=== PATIENT | female | born 1955 | race Caucasian/White ===

== ENCOUNTER 2017-09-05 08:26 | Outpatient (CLI) | payer MEDICARE ==
[~2017-09-05 08:26] MED LIST: ISOVUE-370 76%-LOCM 1 ML ONE
== END 2017-09-05 08:27 | disposition home or self-care (01) ==
LOC: BICCT 08:26
PROVIDERS: ATTEND Family Medicine
DX: G43.909 Migraine, unspecified, not intractable, without status migrainosus (principal)
CPT/HCPCS: 70470

== ENCOUNTER 2018-05-14 08:56 | Emergency (ER) | payer OTHER, MEDICARE ==
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
== END 2018-05-14 11:00 | disposition home or self-care (01) ==
LOC: ERS 08:56
DX: S16.1XXA Strain of muscle, fascia and tendon at neck level, initial encounter (principal); S29.012A Strain of muscle and tendon of back wall of thorax, initial encounter; I10 Essential (primary) hypertension; E11.9 Type 2 diabetes mellitus without complications; E78.5 Hyperlipidemia, unspecified; F41.9 Anxiety disorder, unspecified; Z79.84 Long term (current) use of oral hypoglycemic drugs; Z79.899 Other long term (current) drug therapy; V43.52XA Car driver injured in collision with other type car in traffic accident, initial encounter
CPT/HCPCS: 70450; 71045; 72125

== ENCOUNTER 2018-07-06 17:07 | Emergency (ER) | payer MEDICARE ==
[2018-07-06 17:59] LABS: #Eosinphils 0.1 thou/uL (0.0-0.7); #Lymphocytes 1.2 thou/uL (1.20-3.40); #Monocytes 0.9 thou/uL (0.11-0.59); #Neutrophils 9.7 thou/uL (1.40-6.50); %Basophils 0.3 % (0.0-1.0); %Lymphocytes 10.2 % (21.0-51.0); %Monocytes 7.4 % (0.0-10.0); %Neutrophils 81.1 % (42.0-75.0); Hemoglobin 13.1 g/dL (12.0-16.0); Mean Corpuscular Hemoglobin 29.6 pg (27.0-31.0); Mean Corpuscular Volume 86.9 fL (78.0-98.0); Mean Platelet Volume 8.1 fL (7.4-10.4); Platelet Count 279 thou/uL (130-400); RBC Distribution Width 11.6 % (11.5-14.5); Red Blood Cell (RBC) Count 4.42 mill/uL (4.20-5.40)
[2018-07-06 18:19] LABS: ALT (SGPT) 16 U/L (8-55); AST (SGOT) 16 U/L (5-34); Albumin 4.5 g/dL (3.4-4.8); Alkaline Phosphatase 92 U/L (40-150); Anion Gap 14 mmol/L (10-20); BUN (Urea Nitrogen) 14 mg/dL (9.8-20.1); Bilirubin, Total 0.7 mg/dL (0.2-1.2); Calc. Creatinine Clearance 0 mL/min (70-130); Calcium 9.4 mg/dL (7.8-10.44); Carbon Dioxide 27 mmol/L (23-31); Chloride 98 mmol/L (98-107); Estimated GFR-MDRD 59; Globulin 3.5 g/dL (2.4-3.5); Glucose 242 mg/dL (80-115); Potassium 4.7 mmol/L (3.5-5.1); Sodium 134 mmol/L (136-145)
[2018-07-06] MEDS ORDERED: Ondansetron PF 4 MG/2 ML Vial ONE ×2 (19:03→19:04)
[2018-07-06] MEDS ORDERED: Ketorolac Tromethamine 30 MG/ML VIAL ONE (19:03)
--- NOTE | 2018-07-06 19:12 | RAD ---
CHEST ONE VIEW: 07/06/18 HISTORY: Cough. COMPARISON: Radiograph 05/14/18. FINDINGS: Lungs are clear. No pneumothorax or effusion. The cardiac silhouette and mediastinal contours are wi thin normal limits. IMPRESSION: No acute intrathoracic abnormality. POS: [facility]
[2018-07-06 19:52] LABS: Bilirubin Small (Negative); Blood, Urine Negative (Negative); Clarity CLEAR (Clear); Glucose, Urine (Dipstick) Negative (Negative); Leukocyte Small (Negative); Nitrite Negative (Negative); Protein, Urine (Dipstick) 30 mg/dL (Neg-Trace); Specific Gravity, Urine 1.026 (1.002-1.036)
[2018-07-06 19:56] LABS: Bacteria/HPF None Seen HPF (None Seen); Hyaline Casts/LPF 0-3 HYALINE CAST LPF (0-3 Hyaline); Pathc Cast-AUWi Flag 0.29 (0-2.49); Squamous Epithelial 0-3 HPF (0-3)
== END 2018-07-06 21:08 | disposition home or self-care (01) ==
LOC: ERS 17:07
DX: J20.9 Acute bronchitis, unspecified (principal); E86.0 Dehydration; N39.0 Urinary tract infection, site not specified; E11.9 Type 2 diabetes mellitus without complications; I10 Essential (primary) hypertension; E78.5 Hyperlipidemia, unspecified; Z79.899 Other long term (current) drug therapy; Z79.4 Long term (current) use of insulin
CPT/HCPCS: 36415; 71045; 80053; 81003; 81015; 82010; 82550; 83690; 83880; 84484; 85025; 87086; 87804; 93005; 96361; 96374; 96375; J1885; J2405

== ENCOUNTER 2018-12-28 08:11 | Outpatient (CLI) | payer MEDICARE ==
--- NOTE | 2018-12-28 10:58 | NM ---
EXAM: NM Hida Scan W Drug PROVIDED CLINICAL HISTORY: Right upper quadrant abdominal pain for COMPARISON: None Radiopharmaceutical: 5.5 mCi technetium 99m mebrofenin, IV. FINDINGS: Sequential anterior images of the abdomen were obtained. There is prompt uptake and excretion of radi otracer by the liver. Bowel activity is visualized by 14 minutes with gallbladder activity visualized by 45 minutes with increasing activity in the gallbladder imaging up to 60 minutes. After 60 minutes of imaging, the patient was administered 8 ounces of ensure, by mouth. A gallbladder ejection fraction of 45% was obtained. A normal gallbladder ejection fracture is greater than 33%. IMPRESSION: 1. No evidence of a cystic or common duct obstruction. 2. Normal gallbladder ejection fraction.
== END 2018-12-28 08:12 | disposition home or self-care (01) ==
LOC: NM 08:11
PROVIDERS: ATTEND Family Medicine
DX: R10.11 Right upper quadrant pain (principal)
CPT/HCPCS: 78227; A9537

== ENCOUNTER 2019-01-24 13:04 | Inpatient (IN) | payer MEDICARE ==
[2019-01-24] MEDS ORDERED: Ondansetron PF 4 MG/2 ML Vial ONE (14:20)
[2019-01-24] MEDS ORDERED: Ketorolac Tromethamine 30 MG/ML VIAL ONE (14:20)
[2019-01-24] MEDS ORDERED: Dexamethasone 10 MG/ML VIAL ONE (14:20)
[2019-01-24 14:37] LABS: #Eosinphils 0.1 thou/uL (0.0-0.7); #Lymphocytes 1.5 thou/uL (1.20-3.40); #Monocytes 0.8 thou/uL (0.11-0.59); #Neutrophils 9.5 thou/uL (1.40-6.50); %Basophils 0.4 % (0.0-1.0); %Eosinophils 0.7 % (0.0-10.0); %Lymphocytes 12.6 % (21.0-51.0); %Monocytes 6.3 % (0.0-10.0); Hemoglobin 12.8 g/dL (12.0-16.0); Mean Corpuscular Hemoglobin 30.8 pg (27.0-31.0); Mean Corpuscular Volume 87.9 fL (78.0-98.0); Mean Platelet Volume 8.1 fL (7.4-10.4); Platelet Count 259 thou/uL (130-400); RBC Distribution Width 11.6 % (11.5-14.5); Red Blood Cell (RBC) Count 4.15 mill/uL (4.20-5.40); White Blood Cell (WBC) Count 11.8 thou/uL (4.8-10.8)
[2019-01-24 14:59] LABS: ALT (SGPT) 18 U/L (8-55); AST (SGOT) 17 U/L (5-34); Albumin 4.4 g/dL (3.4-4.8); Alkaline Phosphatase 82 U/L (40-150); Anion Gap 15 mmol/L (10-20); BUN (Urea Nitrogen) 14 mg/dL (9.8-20.1); Bilirubin, Total 0.7 mg/dL (0.2-1.2); Calc. Creatinine Clearance 0 mL/min (70-130); Calcium 9.6 mg/dL (7.8-10.44); Carbon Dioxide 25 mmol/L (23-31); Chloride 99 mmol/L (98-107); Estimated GFR-MDRD 72; Globulin 3.1 g/dL (2.4-3.5); Glucose 202 mg/dL (80-115); Lipase 8 U/L (8-78); Potassium 4.3 mmol/L (3.5-5.1); Protein, Total 7.5 g/dL (6.0-8.3); Sodium 135 mmol/L (136-145)
--- NOTE | 2019-01-24 15:10 | RAD ---
RADIOGRAPH CHEST 2 VIEWS: Date: 01/24/19 Time: 1457 HOURS HISTORY: 63-year-old female with fever. COMPARISON: 07/06/18. FINDINGS: There is a new faint, moderate sized region of patchy infiltrate in the right upper lobe. Cardiomedia stinal silhouette is normal. No pneumothorax or pleural effusion. IMPRESSION: Right upper lobe pneumonia. JN [] POS: [facility]
[2019-01-24] MEDS ORDERED: cefTRIAXone\\ROCEPHIN 2 GM VIAL ONE (15:25)
[2019-01-24] MEDS ORDERED: Azithromycin 500 MG VIAL ONE (15:25)
--- NOTE | 2019-01-24 15:27 | CT ---
CT Abdomen Pelvis W Con: 01/24/2019 2:13 PM CLINICAL INFORMATION: Right lower quadrant abdominal pain COMPARISON: None. TECHNIQUE: Multiple contiguous axial images were obtained and a CT of the abdomen and pelvis with IV contrast. Oral contrast was administered. Coronal reformats were performed. FINDINGS: Lower Chest: within normal limits. Abdomen: Liver: within normal limits. Bile Ducts: Normal caliber. Gallbladder: No calcified gallstones. Normal caliber wall. Pancreas: within normal limits. Spleen: within normal limits. Adrenals: within normal limits. Kidneys: Subcentimeter hypodensities in the right kidney are too small to definitely characterize but likely represent cysts. No left renal abnormality. Pelvis: Reproductive Organs: No pelvic masses. Ureters: within normal limits. Bladder: within normal limits. There is a questionable left lateral bladder diverticulum. Peritoneum: No ascites or free air, no fluid collection. Bowel: Normal caliber. Normal appendix. Scattered diverticula in the colon. Mesentery and Retroperitoneum: No enlarged mesenteric or retroperitoneal lymph nodes. Vessels: Atherosclerotic calcifications. Abdominal Wall: within normal limits. Bones: Degenerative changes in the spine. IMPRESSION: 1. No evidence of acute intraabdominal or pelvic abnormality. 2. Diverticulosis
--- NOTE | 2019-01-24 17:58 | PDOC.FM ---
- Subjective Subjective: Mrs. Ambrocio is a 63 y/o female who presents to the ED with a 24 hour history of dry cough, fever, malaise, N/V/D. She states that she began coughing and gagging last night after dinner and has been "unable to swallow or keep anything down". She also complains of sporadic, generalized chest pain that is associated with her cough as well as generalized abdominal pain that is diffuse and difficult to characterize. Nothing has been able to resolve her symptoms, and she was quite anxious upon presentation. She attempted to see a local physician this morning but was unable to get an appointment, so she came to the ED. She denies any SOB, cough productive of blood or sputum, chills, night sweats changes in weight. - Objective Vital Signs & Weight: TMax(99.5) HR(101) BP(151/65) RR(19) O2(94-Room) Result Diagrams: 01/24/19 14:26 01/24/19 14:26 Radiology Reviewed by me: No (RUL Infiltrates) Phys Exam - Physical Examination Constitutional: NAD HEENT: moist MMs, oral pharynx no lesions Neck: no nodes, no JVD, supple, full ROM Respiratory: no wheezing, no rales Course breath sounds in RUL Cardiovascular: RRR, no significant murmur, no rub Gastrointestinal: soft, no distention Mild epigastric tenderness Musculoskeletal: no edema Neurological: moves all 4 limbs Lymphatic: no nodes Psychiatric: normal affect, A&O x 3 Skin: no rash Dx/Plan (1) Pneumonia Code(s): J18.9 - PNEUMONIA, UNSPECIFIED ORGANISM Status: Acute (2) Neuropathy Code(s): G62.9 - POLYNEUROPATHY, UNSPECIFIED Status: Acute (3) Hypertension Code(s): I10 - ESSENTIAL (PRIMARY) HYPERTENSION Status: Chronic (4) Diabetes 1.5, managed as type 2 Code(s): E13.9 - OTHER SPECIFIED DIABETES MELLITUS WITHOUT COMPLICATIONS Status: Chronic (5) Nausea & vomiting Code(s): R11.2 - NAUSEA WITH VOMITING, UNSPECIFIED Status: Acute - Plan Plan: 1. Pneumonia -Cough, N/V, malaise, with subjective fever -Course breath sounds heard in RUL -CXR: RUL Infiltrates -Elevated WBCs (11.8) -Toradol, Decadron, Zofran, Rocephin, Azithromycin, and 1L NS given in ED - 2. Diabetes 3. HTN 4. Nausea / Vomiting 5. Neuropathy
[2019-01-24] MEDS ORDERED: Sodium Chloride 0.9% 1,000 ML IV SCH (18:33)
[2019-01-24] MEDS ORDERED: Ondansetron ODT 4 MG TAB PO PRN (18:33)
[2019-01-24] MEDS ORDERED: Acetaminophen 325 MG TAB PO PRN (18:33)
--- NOTE | 2019-01-24 18:38 | PDOC.FPRHP ---
- History of Present Illness Chief Complaint: Sore Throat, Cough, N/V/D, Malaise History of Present Illness: Mrs. Ambrocio is a 63 y/o female who presents to the ED with a 24 hour history of dry cough, fever, malaise, N/V/D. She states that she began coughing and gagging last night after dinner and has been "unable to swallow or keep anything down". She also complains of sporadic, generalized chest pain that is associated with her cough as well as generalized abdominal pain that is diffuse and difficult to characterize. Nothing has been able to resolve her symptoms, and she was quite anxious upon presentation. She attempted to see a local physician this morning but was unable to get an appointment, so she came to the ED. She denies any SOB, cough productive of blood or sputum, chills, night sweats changes in weight. ED Course: A CXR revealed RUL infiltrates while an ABD / Pelvic CT scan revealed NAF. The patient received Ceftriaxone 2 g IV, Azithromycin 500 mg IV, Dexamethasone 10 mg PO, Ondansetron 4 mg IV, and a 1L NS bolus before being transferred to the floor. - Allergies/Adverse Reactions Allergies Allergy/AdvReac Type Severity Reaction Status Date / Time Sulfa (Sulfonamide Allergy Intermediate Rash Verified 01/24/19 23:30 Antibiotics) - Home Medications Medication Instructions Recorded Confirmed Type Aspirin [Ecotrin Regular Strength] 325 mg PO DAILY 05/26/13 01/24/19 History Lisinopril 40 mg PO QAM 05/26/13 01/24/19 History Simvastatin [Zocor] 40 mg PO HS 05/26/13 01/24/19 History metFORMIN HCl 1,000 mg PO BID-WM 05/26/13 01/24/19 History Amitriptyline HCl [Elavil] 50 mg PO HS 05/30/13 01/24/19 History Gabapentin [Neurontin] 300 mg PO QID 05/30/13 01/24/19 History Cholecalciferol (Vitamin D3) 1,000 unit PO ASDIR 01/24/19 01/24/19 History [Vitamin D] Cyclobenzaprine [Flexeril] 50 mg PO HS 01/24/19 01/24/19 History HumuLIN 70/30 0 unit SC TID 01/24/19 01/24/19 History Pantoprazole [Protonix] 40 mg PO DAILY PRN 01/24/19 01/24/19 History - History PMHx: Diabetes, HTN, Neuropathy PSHx: -- FHx: -- Social: Denies x3 - Review of Systems General: reports: fever/chills, fatigue. denies: weight/appetite/sleep changes , night sweats Eyes: reports: vision changes (Chronic) Respiratory: reports: cough, congestion. denies: shortness of breath Cardiovascular: reports: chest pain (w/ Cough) Gastrointestinal: reports: nausea, vomiting, diarrhea, abdominal pain. denies: GI bleeding Genitourinary: denies: dysuria, polyuria, discharge Musculoskeletal: reports: pain, stiffness, arthritis/arthralgias Neurological: reports: numbness - Vital signs BP: [] HR: [] RR: [] Tmax: [] Pox: []% on [] Wt: [] - Physical Exam Constitutional: NAD, awake, alert and oriented, well developed, other (Ill- Appearing) HEENT: normocephalic and atraumatic, PERRLA, EOMI, grossly normal hearing, MMM, oropharynx clear -HEENT: Left Subconjunctival Hemorrhage Neck: supple, FROM, trachea midline, no LAD, no JVD Chest: no-tender to palpation, no lesions Heart: RRR, normal S1/S2, no murmurs/rubs/gallops, pulses present, no edema Lungs: no respiratory distress, good air movement, no wheezing, other (Course breath sounds in RUL) Abdomen: soft, non-tender, bowel sounds present, other (Supraumbilical hernia, reducible, non-incarcerated) FMR H&P: Results - Labs Result Diagrams: 01/24/19 14:26 01/24/19 14:26 Lab results: WBC 11.8 thou/uL (4.8-10.8) H 01/24/19 14: Hgb 12.8 g/dL (12.0-16.0) 01/24/19 14: Hct 36.4 % (36.0-47.0) 01/24/19 14: MCV 87.9 fL (78.0-98.0) 01/24/19 14: Plt Count 259 thou/uL (130-400) 01/24/19 14:26 Neutrophils % 80.0 % (42.0-75.0) H 01/24/19 14:26 Sodium 135 mmol/L (136-145) L 01/24/19 14:26 Potassium 4.3 mmol/L (3.5-5.1) 01/24/19 14:26 Chloride 99 mmol/L (98-107) 01/24/19 14:26 Carbon Dioxide 25 mmol/L (23-31) 01/24/19 14:26 BUN 14 mg/dL (9.8-20.1) 01/24/19 14:26 Creatinine 0.80 mg/dL (0.6-1.1) 01/24/19 14:26 Glucose 202 mg/dL (80-115) H 01/24/19 14:26 Lactic Acid 1.4 mmol/L (0.5-2.2) 01/24/19 14:26 Calcium 9.6 mg/dL (7.8-10.44) 01/24/19 14:26 Total Bilirubin 0.7 mg/dL (0.2-1.2) 01/24/19 14:26 AST 17 U/L (5-34) 01/24/19 14:26 ALT 18 U/L (8-55) 01/24/19 14:26 Alkaline Phosphatase 82 U/L (40-150) 01/24/19 14:26 Serum Total Protein 7.5 g/dL (6.0-8.3) 01/24/19 14:26 Albumin 4.4 g/dL (3.4-4.8) 01/24/19 14:26 Lipase 8 U/L (8-78) 01/24/19 14:26 - Radiology Interpretation Chest x-ray Status: report reviewed by me (RUL Infiltrates) CT scan - abdomen Status: report reviewed by me (NAF) FMR H&P: A/P - Problem List (1) Pneumonia Current Visit: Yes Status: Acute Code(s): J18.9 - PNEUMONIA, UNSPECIFIED ORGANISM (2) Neuropathy Current Visit: Yes Status: Acute Code(s): G62.9 - POLYNEUROPATHY, UNSPECIFIED (3) Hypertension Current Visit: No Status: Chronic Code(s): I10 - ESSENTIAL (PRIMARY) HYPERTENSION (4) Diabetes 1.5, managed as type 2 Current Visit: No Status: Chronic Code(s): E13.9 - OTHER SPECIFIED DIABETES MELLITUS WITHOUT COMPLICATIONS (5) Nausea & vomiting Current Visit: No Status: Acute Code(s): R11.2 - NAUSEA WITH VOMITING, UNSPECIFIED - Plan 1. Pneumonia -Sore Throat, dry cough, sore throat, N/V/D, malaise -Ill-appearing with coarse breath sounds in RUL -WBCs: 11.8 -CXR: RUL Infiltrates -Ceftriaxone 1 g IV daily / Azithromycin 500 mg IV daily -NS 125 ml/h for fluid resuscitation -Blood Cultures: Pending 2. DM -Humalog 70/30 45U-40U-45U AC -Mild Sliding Scale Insulin -Carb Conscious / Heart Healthy Diet 3. HTN -Restart home meds 4. Nausea / Vomiting -Ondansetron 5 mg PO Q6H 5. Neuropathy -Ensure adequate blood glucose control -Restart home Gabapentin regimen Dispo: Admit to medical floor, administer antibiotic therapy, fluid resuscitation, monitor blood glucose and ensure adequate blood pressure control. FMR H&P: Upper Level - Plan Date/Time: 01/24/19 1835 63 yo f with pmhx of type 2 diabetes, presents with one day history of sore throat, cough with productive sputum, and fever. BP:146/69 HR 119 RR 19 T: 99.5 PE: Tachycardic Minimal crackles right middle lobe No edema Abdomen soft nontender to distention Glucose: 202 Wbc 11.8 with 80% PMNs CXR shows RUL infiltrate CT-no acute findings A/P: #CAP-started on rocephin and azithromycin. #Diabetes, type 2-started on home regimen of 70/30 45/40/45 before meals with a sliding scale. #Nausea/vomiting-zofran prn, GI cocktail prn. Flu negative. No acute intra- abdominal process on CT. Jessenia Alegria MD, PGY-3 Addendum - Attending - Attending Attestation Date/Time: 01/25/19 0817 I personally evaluated the patient and discussed the management with Dr. Angelo at time of admission yesterday. I agree with the History, Examination, Assessment and Plan documented above with any addition or exceptions noted below.
[2019-01-24] MEDS ORDERED: Dextrose 5% in Water 1,000 ML IV PRN (19:10)
[2019-01-24] MEDS ORDERED: Dextrose 50% Abboject 50 ML SYRINGE SLOW IVP PRN (19:10)
[2019-01-24 20:01] VITALS: BMI 34.9
[2019-01-24] MEDS ORDERED: Methocarbamol 500 MG TAB PO PRN (21:21)
[2019-01-24] MEDS: Sodium Chloride 0.9% 1,000 ML IV SCH (21:37)
[2019-01-24] MEDS ORDERED: Amitriptyline HCl 25 MG TAB PO SCH (21:45)
[2019-01-24] MEDS ORDERED: HumaLOG 300 UNITS/3 ML VIAL SC PRN (22:12)
[2019-01-25] MEDS: Sodium Chloride 0.9% 1,000 ML IV SCH ×2 (05:52→15:49)
[2019-01-25] MEDS: HumaLOG 300 UNITS/3 ML VIAL SC PRN ×2 (05:52→12:15)
--- NOTE | 2019-01-25 06:27 | PDOC.FM ---
- Subjective Subjective: Mrs. Loera was eating breakfast upon arrival, was pleasant and generally improved since yesterday. She states that she is still suffering from general malaise, but that her symptoms have improved somewhat since admission. She denies any troublesome symptoms such as continued gagging, choking, N/V/D, chest pain, SOB, fevers, chills, night sweats. She states that she feels her DM2 has been controlled well, but admits to a long history of problems with her blood glucose control. - Objective Vital Signs & Weight: Vital Signs (12 hours) Temp Pulse Resp BP Pulse Ox 01/25/19 04:00 97.7 F 78 18 135/72 96 01/25/19 00:40 97.8 F 98 16 114/64 92 L 01/24/19 22:32 92 L 01/24/19 20:00 95 01/24/19 18:34 98.2 F 81 20 124/74 95 01/24/19 18:33 98.1 F 79 18 106/66 92 L Weight Weight 86.778 kg Result Diagrams: 01/24/19 14:26 01/24/19 14:26 Phys Exam - Physical Examination Constitutional: NAD HEENT: moist MMs Left sub-conjunctival hemorrhage Neck: no nodes, no JVD, supple, full ROM Respiratory: no wheezing, no rales, no rhonchi, clear to auscultation bilateral Cardiovascular: RRR, no significant murmur, no rub Gastrointestinal: soft, non-tender, no distention Neurological: moves all 4 limbs Lymphatic: no nodes Psychiatric: normal affect, A&O x 3 Dx/Plan (1) Pneumonia Code(s): J18.9 - PNEUMONIA, UNSPECIFIED ORGANISM Status: Acute (2) Neuropathy Code(s): G62.9 - POLYNEUROPATHY, UNSPECIFIED Status: Acute (3) Hypertension Code(s): I10 - ESSENTIAL (PRIMARY) HYPERTENSION Status: Chronic (4) Diabetes 1.5, managed as type 2 Code(s): E13.9 - OTHER SPECIFIED DIABETES MELLITUS WITHOUT COMPLICATIONS Status: Chronic (5) Nausea & vomiting Code(s): R11.2 - NAUSEA WITH VOMITING, UNSPECIFIED Status: Acute - Plan Plan: 1. Pneumonia -Subjective fever, sore throat, dry cough, N/V/D, malaise -Ill-appearing with coarse breath sounds in RUL -WBCs: 11.8 -CXR: RUL Infiltrates -Ceftriaxone 1 g IV daily / Azithromycin 500 mg IV daily -NS 125 ml/h for fluid resuscitation -Blood Cultures: Pending 2. DM -Humalog 70/30 45U-40U-45U AC -Evaluate Mild Sliding Scale Insulin efficacy -Carb Conscious / Heart Healthy Diet 3. HTN -Restart home meds 4. Nausea / Vomiting -Ondansetron 5 mg PO Q6H 5. Neuropathy -Ensure adequate blood glucose control -Restart home Gabapentin regimen Dispo: Continue antibiotic regimen on medical floor for minimum <24 hours, evaluate fluid / electrolyte status and blood glucose control. Place for eventual transition to PO antibiotics and DC. Addendum - Attending - Attending Attestation Date/Time: 01/25/19 1240 I personally evaluated the patient and discussed the management with Dr. Knutson. I agree with the History, Examination, Assessment and Plan documented above with any addition or exceptions noted below. Tolerating PO and symptoms improved. Transition to PO antibiotics and plan for d/c this evening or tomorrow.
[2019-01-25] MEDS ORDERED: HumuLIN 70/30 (300 UNITS/3 ML VIAL) SC SCH ×2 (07:30→11:30)
[2019-01-25] MEDS ORDERED: Enoxaparin Sodium 40 MG/0.4 ML SYRINGE SC SCH (09:00)
[2019-01-25] MEDS ORDERED: Azithromycin 250 MG TAB PO SCH (13:30)
[2019-01-25] MEDS ORDERED: AMOXicillin 250 MG CAP PO SCH (15:00)
[2019-01-25] MEDS ORDERED: Azithromycin 500 MG in Sodium Chloride 0.9% 250 ML 250 ML IVPB SCH (15:00)
[2019-01-25 15:26] VITALS: BP 126/62; TEMP 97.3
[2019-01-25] MEDS ORDERED: cefTRIAXone\\ROCEPHIN 1 GM in Sodium Chloride 0.9% 100 ML IVPB SCH (16:00)
[2019-01-25] MEDS ORDERED: Amitriptyline HCl 25 MG TAB PO SCH (21:00)
== END 2019-01-25 17:14 | disposition home or self-care (01) | DRG 195 ==
LOC: ERS 13:04 → T4-A 18:30
PROVIDERS: ADMIT Family Medicine; ATTEND Family Medicine
DX: J18.9 Pneumonia, unspecified organism (principal); I10 Essential (primary) hypertension; R11.2 Nausea with vomiting, unspecified; E11.40 Type 2 diabetes mellitus with diabetic neuropathy, unspecified; Z88.2 Allergy status to sulfonamides; Z79.4 Long term (current) use of insulin
CPT/HCPCS: 36415; 36416; 71046; 74177; 80053; 83605; 83690; 85025; 87040; 87081; 87430; 93005; 96361; 96365; 96367; 96375; J0456; J0696; J1100; J1650; J1815; J1885; J2405; J7050

== ENCOUNTER 2019-01-26 23:41 | Observation (INO) | payer MEDICARE ==
[2019-01-27] MEDS ORDERED: Azithromycin 500 MG VIAL ONE (00:47)
[2019-01-27] MEDS ORDERED: Dexamethasone 10 MG/ML VIAL ONE (00:47)
[2019-01-27] MEDS ORDERED: Haloperidol Lactate 5 MG/ML VIAL ONE (00:47)
[2019-01-27 00:49] LABS: #Eosinphils 0.3 thou/uL (0.0-0.7); #Lymphocytes 1.3 thou/uL (1.20-3.40); #Monocytes 0.6 thou/uL (0.11-0.59); #Neutrophils 5.7 thou/uL (1.40-6.50); %Basophils 0.5 % (0.0-1.0); %Lymphocytes 16.6 % (21.0-51.0); %Monocytes 7.9 % (0.0-10.0); %Neutrophils 71.1 % (42.0-75.0); Hemoglobin 12.7 g/dL (12.0-16.0); Mean Corpuscular HGB CONC 35.1 g/dL (32.0-36.0); Mean Corpuscular Volume 88.3 fL (78.0-98.0); Mean Platelet Volume 8.2 fL (7.4-10.4); Platelet Count 284 thou/uL (130-400); RBC Distribution Width 11.5 % (11.5-14.5)
[2019-01-27 01:09] LABS: ALT (SGPT) 17 U/L (8-55); AST (SGOT) 23 U/L (5-34); Albumin 4.2 g/dL (3.4-4.8); Alkaline Phosphatase 76 U/L (40-150); Anion Gap 16 mmol/L (10-20); BUN (Urea Nitrogen) 13 mg/dL (9.8-20.1); Bilirubin, Total 0.5 mg/dL (0.2-1.2); Calc. Creatinine Clearance 0 mL/min (70-130); Calcium 9.4 mg/dL (7.8-10.44); Carbon Dioxide 25 mmol/L (23-31); Chloride 100 mmol/L (98-107); Estimated GFR-MDRD 70; Globulin 3.6 g/dL (2.4-3.5); Glucose 191 mg/dL (80-115); Lipase 6 U/L (8-78); Potassium 4.6 mmol/L (3.5-5.1); Protein, Total 7.8 g/dL (6.0-8.3); Sodium 136 mmol/L (136-145)
[2019-01-27 02:30] LABS: Bilirubin Negative (Negative); Blood, Urine Negative (Negative); Clarity Clear (Clear); Glucose, Urine (Dipstick) 50 mg/dL (Negative); Leukocyte Negative Leu/uL (Negative); Nitrite Negative (Negative); Protein, Urine (Dipstick) Negative (Neg-Trace); Urobilinogen Normal mg/dL (Less than 2)
[2019-01-27] MEDS ORDERED: cefTRIAXone\\ROCEPHIN 1 GM VIAL ONE (03:26)
--- NOTE | 2019-01-27 04:20 | PDOC.FM ---
- Objective Result Diagrams: 01/27/19 00:23 01/27/19 00:23
[2019-01-27 05:08] VITALS: BMI 34.7
[2019-01-27] MEDS ORDERED: Acetaminophen 650 MG Suppository PR PRN (05:08)
[2019-01-27] MEDS ORDERED: Ondansetron PF 4 MG/2 ML Vial IVP PRN (05:08)
--- NOTE | 2019-01-27 05:13 | PDOC.FPRHP ---
- History of Present Illness Chief Complaint: Nausea, Vomiting, Fever, Inability to Tolerate PO History of Present Illness: Mrs. Ambrocio is a pleasant 63 y/o female who was discharged from the hospital on 01/25/19 on PO Amoxicillin and Azithromycin for CAP. She has returned today following a ~36H history of inability to tolerate PO antibiotics or diet, as well as a fever measuring 102, continued fatigue, malaise, SOB, and rigors. She states that as soon as she puts a pill into her mouth she starts to gag and immediately vomits, with the same reaction occurring with her soft diet. She does not believe that the pills or food are getting stuck in her throat, but states that "as soon as it hits my stomach it comes back up." She also denies any chest pain, syncopal episodes, or dramatic changes in weight. ED Course: Mrs. Ambrocio appeared somnolent and ill in the ED. According to ED staff, Mrs. Ambrocio passed a swallow study, but had an ambulatory O2 test that dropped into the 80s, a CXR that was essentially unchanged from her prior admission, and CTPA that was negative. She received a 1L bolus of NS, Albuterol DuoNebs, Azithromycin 500 mg IV, Ceftriaxone 1 g IV, Dexamethasone 10 mg, as well as Reglan, Zofran, and Haldol for refractory nausea. - Allergies/Adverse Reactions Allergies Allergy/AdvReac Type Severity Reaction Status Date / Time Sulfa (Sulfonamide Allergy Intermediate Rash Verified 01/27/19 05:23 Antibiotics) - Home Medications Medication Instructions Recorded Confirmed Type Aspirin [Ecotrin Regular Strength] 325 mg PO DAILY 05/26/13 01/27/19 History Lisinopril 40 mg PO QAM 05/26/13 01/27/19 History Simvastatin [Zocor] 40 mg PO HS 05/26/13 01/27/19 History metFORMIN HCl 1,000 mg PO BID-WM 05/26/13 01/27/19 History Amitriptyline HCl [Elavil] 50 mg PO HS 05/30/13 01/27/19 History Gabapentin [Neurontin] 300 mg PO QID 05/30/13 01/27/19 History Cholecalciferol (Vitamin D3) 1,000 unit PO ASDIR 01/24/19 01/27/19 History [Vitamin D] Cyclobenzaprine [Flexeril] 50 mg PO HS 01/24/19 01/27/19 History HumuLIN 70/30 [HumuLIN 70/30 Vial] 0 unit SC TID 01/24/19 01/27/19 History Pantoprazole [Protonix] 40 mg PO DAILY PRN 01/24/19 01/27/19 History Amoxicillin [Amoxil] 500 mg PO TID 6 Days #18 cap 01/25/19 01/27/19 Rx - History PMHx: DM2, Neuropathy, HTN, PSHx: Tubal Ligation, Unspecified Knee Surgery FHx: Unable to Obtain Social: Denies x3 - Review of Systems General: reports: fever/chills, fatigue. denies: weight/appetite/sleep changes , night sweats Eyes: reports: vision changes, other (Subconjunctival Hemorrhage) ENT: denies: nasal congestion, rhinorrhea Respiratory: reports: cough, shortness of breath, exercise intolerance Cardiovascular: denies: chest pain, palpitation Gastrointestinal: reports: nausea, vomiting, diarrhea Genitourinary: denies: dysuria, polyuria Skin: denies: lesions, jaundice Musculoskeletal: reports: stiffness, arthritis/arthralgias Neurological: denies: syncope, seizure - Vital signs BP: [165/74] HR: [93] RR: [18] Tmax: [98.7] Pox: [94]% on [Room] Wt: [] - Physical Exam Constitutional: NAD, awake, alert and oriented, well developed HEENT: normocephalic and atraumatic, PERRLA, grossly normal vision, grossly normal hearing, oropharynx clear, other (Left Subconjunctival Hemorrhage) Neck: supple, FROM, trachea midline, no LAD Chest: no-tender to palpation, no lesions Heart: RRR, normal S1/S2, no murmurs/rubs/gallops, pulses present, no edema Lungs: CTAB, no respiratory distress, good air movement, no rales/rhonchi, no wheezing, no retractions Abdomen: soft, non-tender, no masses/distention Musculoskeletal: normal structure, normal tone, ROM grossly normal Neurological: no focal deficit Skin: no rash/lesions, good turgor Heme/Lymphatic: no unusual bruising or bleeding, no LAD Psychiatric: normal mood and affect, intact recent and remote memory FMR H&P: Results - Labs Result Diagrams: 01/27/19 00:23 01/27/19 00:23 Lab results: WBC 8.0 thou/uL (4.8-10.8) 01/27/19 00:23 Hgb 12.7 g/dL (12.0-16.0) 01/27/19 00:23 Hct 36.2 % (36.0-47.0) 01/27/19 00:23 MCV 88.3 fL (78.0-98.0) 01/27/19 00:23 Plt Count 284 thou/uL (130-400) 01/27/19 00:23 Neutrophils % 71.1 % (42.0-75.0) 01/27/19 00:23 Sodium 136 mmol/L (136-145) 01/27/19 00:23 Potassium 4.6 mmol/L (3.5-5.1) 01/27/19 00:23 Chloride 100 mmol/L (98-107) 01/27/19 00:23 Carbon Dioxide 25 mmol/L (23-31) 01/27/19 00:23 BUN 13 mg/dL (9.8-20.1) 01/27/19 00:23 Creatinine 0.82 mg/dL (0.6-1.1) 01/27/19 00:23 Glucose 191 mg/dL (80-115) H 01/27/19 00:23 Lactic Acid 1.2 mmol/L (0.5-2.2) 01/27/19 00:23 Calcium 9.4 mg/dL (7.8-10.44) 01/27/19 00:23 Total Bilirubin 0.5 mg/dL (0.2-1.2) 01/27/19 00:23 AST 23 U/L (5-34) 01/27/19 00:23 ALT 17 U/L (8-55) 01/27/19 00:23 Alkaline Phosphatase 76 U/L (40-150) 01/27/19 00:23 Creatine Kinase 43 U/L (29-168) 01/27/19 00:23 B-Natriuretic Peptide 111.8 pg/mL (0-100) H 01/27/19 02:36 Serum Total Protein 7.8 g/dL (6.0-8.3) 01/27/19 00:23 Albumin 4.2 g/dL (3.4-4.8) 01/27/19 00:23 Lipase 6 U/L (8-78) L 01/27/19 00:23 Urine Ketones 20 mg/dL (Negative) A 01/27/19 02:15 Urine Blood Negative (Negative) 01/27/19 02:15 Urine Nitrite Negative (Negative) 01/27/19 02:15 Ur Leukocyte Esterase Negative Reena/uL (Negative) 01/27/19 02:15 - Radiology Interpretation Chest x-ray Status: image reviewed by me Additional comment: Unchanged from previous CXR CT scan - chest Status: report reviewed by me (REYNALDO) Other Status: report reviewed by me Additional comment: CTA: NAF FMR H&P: A/P - Problem List (1) Dysphagia Current Visit: Yes Status: Acute Code(s): R13.10 - DYSPHAGIA, UNSPECIFIED (2) Nausea & vomiting Current Visit: No Status: Acute Code(s): R11.2 - NAUSEA WITH VOMITING, UNSPECIFIED (3) Diabetes 1.5, managed as type 2 Current Visit: No Status: Chronic Code(s): E13.9 - OTHER SPECIFIED DIABETES MELLITUS WITHOUT COMPLICATIONS (4) Hypertension Current Visit: No Status: Chronic Code(s): I10 - ESSENTIAL (PRIMARY) HYPERTENSION (5) Pneumonia Current Visit: No Status: Acute Code(s): J18.9 - PNEUMONIA, UNSPECIFIED ORGANISM - Plan 1. Dysphagia -Patient reports inability to tolerate PO antibiotics or soft diet -Swallow Study in ED was negative -Speech Therapy Consult: Pending -Consider GI Consult 2. CAP, Inadequately Treated -Patient was unable to tolerate PO antibiotics as prescribed -Procalcitonin: Pending -Respiratory Panel: Pending -Influenza Antigen Test: Pending -CXR: Unchanged from 01/24 -CT Chest: NAF -CTA: NAF -Initiate Ceftriaxone 1 g IV and Azithromycin 500 mg IV and considering transition to PO antibiotics as Dysphagia resolves -Duration of Antibiotic coverage must total 7 days in duration beginning on 01/27 3. DM2, Poorly Controlled -Restart home regime of Humalog 70/30 (45U AC - 40U AC - 45U AC) -Mild Sliding Scale Insulin Dispo: Admit to medical floor and keep NPO until source of Dysphagia identified. Initiate empiric antibiotic therapy for CAP. Restart home DM2 medications and Mild Sliding Scale Insulin. FMR H&P: Upper Level - Pertinent history 63 year old female who was recently discharged from our service with CAP presents with N/V and difficulty swallowing. Patient also reports temperature to 102F at home. She states that she has been unable to keep anything down, including her pills since discharge from the hospital. Patient describes difficulty swallowing/keeping food down. She is not able to pinpoint at what point in the swallowing process she has difficulty. She states, "as soon as it hits my tongue, or gets to my stomach it comes back up." She endorses pink tinge to emesis today. Patient denies abdominal pain or lower extremity swelling. She does endorse shortness of breath with exertion over the last several days. Patient endorses generalized weakness and diffuse body aches. - Pertinent findings General: Alert and oriented x3. No acute distress. Flat affect. HEENT: EOMI. PERRL. Card: RRR, No murmur Resp: CTA, No acute respiratory distress Abdomen: Soft, non-tender Ext: No edema Skin: No rashes or lesions Neuro: No focal deficits - Plan Date/Time: 01/27/19 7001 ILilli, have evaluated this patient and agree with findings/plan as outlined by nutrition intern resident. Pertinent changes/additions are listed here. Dysphagia - "Difficulty swallowing" - Patient reports unable to tolerate PO - Speech eval - Consider GI pending speech eval Possible gastroperesis - Patient states that she throws up as soon as anything hits her stomach - Will start reglan for motility and N/V CAP - Patient was recently treated in hospital and sent out with oral antibiotics - She has been unable to tolerate oral antibiotics d/t N/V - Will restart IV antibiotics for treatment of CAP (ceftriaxone, Azithromycin) - Patient reports fever to 102F at home - CXR appears relatively unchanged from last visit - WBC WNL Elevated BNP - Dyspnea on exertion - BNP 111. Prior BNP negligible - Consider echo for further workup DM type II - Continue home insulin regimen - MSSI - CC diet/HH diet HTN - Continue home medications Neuropathy - Continue home medications Dispo: Obs on medical. Anticipate LOS <48 hours. Addendum - Attending - Attending Attestation Date/Time: 01/27/19 [id number] I personally evaluated the patient and discussed the management with Dr. Knutson. I agree with the History, Examination, Assessment and Plan documented above with any addition or exceptions noted below. The patient presented with chills, fatigue, shortness of breath following a recent hospitalization for CAP. She states she was having difficulty keeping food and meds down. Will continue rocephin and azithromcyin. Pt states she is feeling much better this morning since receiving IV antibiotics. will get speech to eval swallowing.
[2019-01-27] MEDS ORDERED: Metoclopramide HCl 10 MG/2 ML VIAL IVP SCH (05:15)
[2019-01-27] MEDS: Sodium Chloride 0.9% 1,000 ML IV SCH ×3 (05:35→21:33)
[2019-01-27] MEDS ORDERED: Dextrose 50% Abboject 50 ML SYRINGE SLOW IVP PRN (06:30)
[2019-01-27] MEDS ORDERED: HumaLOG 300 UNITS/3 ML VIAL SC PRN (06:30)
[2019-01-27] MEDS ORDERED: Dextrose 5% in Water 1,000 ML IV PRN (06:30)
[2019-01-27] MEDS ORDERED: HumuLIN 70/30 (300 UNITS/3 ML VIAL) SC SCH ×3 (07:30→17:00)
[2019-01-27] MEDS ORDERED: Pantoprazole 40 MG GRANULES PACKET PO PRN (07:46)
--- NOTE | 2019-01-27 07:52 | RAD ---
CHEST 2 VIEWS: Date: 01/27/19 INDICATION: Nausea, vomiting, fever, and cough. COMPARISON: Prior exam dated 01/24/19. FINDINGS: Patchy areas of air space opacity in the right upper lobe persist, consistent with pneumonia. Mild ca rdiomegaly is stable. No pleural effusion is evident. No acute osseous abnormality is evident. IMPRESSION: Persistent right upper lobe pneumonia. POS: BH
[2019-01-27] MEDS: Enoxaparin Sodium 40 MG/0.4 ML SYRINGE SC SCH (08:33)
[2019-01-27] MEDS: Aspirin 325 mg Enteric Coated Tablet PO SCH (09:11)
[2019-01-27] MEDS: metFORMIN 500 MG TAB PO SCH ×2 (09:11→16:40)
[2019-01-27] MEDS: Lisinopril 20 MG TAB PO SCH (09:11)
[2019-01-27] MEDS: Gabapentin 300 MG CAP PO SCH ×4 (09:11→21:28)
--- NOTE | 2019-01-27 10:27 | CT ---
CTA THORAX UTILIZING IV CONTRAST WITH PE PROTOCOL AND 3D REFORMATTED IMAGING: Date: 01/27/19 INDICATION: History of nausea, vomiting, fever, cough, chills, and pneumonia. COMPARISON: Prior CTA aortic dissection protocol dated 04/03/15. FINDINGS: No central or segmental pulmonary embolus is evident. Heart and great vessels appear within normal li mits for age. There are small bilateral pleural effusions. There is patchy air space opacity in the right upper lobe and superior segment of the right lower lob e suspicious for pneumonia. There are areas of subsegmental volume loss involving the left lung base. There are a few mildly prominent lymph nodes within the right hilar region measuring up to 6.5 mm. T here is an infrahilar lymph node measuring 9.0 mm. There is fatty infiltration of the liver. There is a small hiatal hernia. No acute osseous abnormality is evident. IMPRESSION: 1. No central or segmental pulmonary embolus demonstrated. 2. Right upper lobe and right lower lobe pneumonia. 3. Small bilateral pleural effusions. 4. Reactive lymph node within right hilar region. 5. Fatty liver. 6. Hiatal hernia. POS: BH
[2019-01-27] MEDS ORDERED: predniSONE 20 MG TAB PO SCH (11:00)
[2019-01-27] MEDS ORDERED: Budesonide 0.5 MG/2 ML NEB INH SCH (11:00)
[2019-01-27] MEDS ORDERED: Iopamidol 370 76% 100 ML VIAL ONE (11:59)
[2019-01-27] MEDS: HumuLIN 70/30 (300 UNITS/3 ML VIAL) SC SCH (13:13)
[2019-01-27] MEDS: Metoclopramide HCl 10 MG/2 ML VIAL IVP SCH ×2 (13:28→21:33)
[2019-01-27] MEDS ORDERED: Cyclobenzaprine 10 MG TAB PO SCH ×2 (21:00→23:00)
[2019-01-27] MEDS ORDERED: Amitriptyline HCl 25 MG TAB PO SCH (21:00)
[2019-01-27] MEDS ORDERED: Atorvastatin Calcium 10 MG TAB PO SCH (21:00)
[2019-01-28] MEDS ORDERED: Azithromycin 500 MG in Sodium Chloride 0.9% 250 ML 250 ML IVPB SCH (01:00)
[2019-01-28] MEDS ORDERED: cefTRIAXone\\ROCEPHIN 1 GM in Sodium Chloride 0.9% 100 ML IVPB SCH (04:00)
--- NOTE | 2019-01-28 05:31 | PDOC.FM ---
- Subjective Subjective: Pt is much improved this morning. Passed bedside swallow yesterday evening and was able to eat dinner last night and breakfast this morning without difficulty. No dysphagia with solids or liquids. Pt states she believes the dysphagia is more due to increased cough/congestion associated with her PNA and as these sxs have improved, so has the dysphagia. Ambulating well without difficulty. No fevers/chills, n/v/d/c, CP, SOB, or abdominal pain. Pt is eager to be discharged home. - Objective MAR Reviewed: Yes Vital Signs & Weight: Vital Signs (12 hours) Temp Pulse Resp BP Pulse Ox 01/28/19 04:00 98.1 F 86 18 140/64 96 01/28/19 02:30 80 16 99 01/27/19 23:17 97.5 F L 74 17 161/71 H 98 01/27/19 19:06 97.9 F 89 16 144/66 H 100 01/27/19 18:24 88 12 99 Weight Weight 86.137 kg I&O: 01/26/19 01/27/19 01/28/19 06:59 06:59 06:59 Intake Total 1760 Output Total 400 Balance 1360 Result Diagrams: 01/27/19 00:23 01/27/19 00:23 Radiology Reviewed by me: Yes Phys Exam - Physical Examination Constitutional: NAD HEENT: PERRLA, moist MMs Neck: no nodes, supple Respiratory: no wheezing, no rales, no rhonchi Slight decreased breath sounds R>L Cardiovascular: RRR, no significant murmur, no rub Gastrointestinal: soft, non-tender, no distention, positive bowel sounds Musculoskeletal: no edema, pulses present Neurological: moves all 4 limbs Psychiatric: normal affect, A&O x 3 Dx/Plan (1) Dysphagia Code(s): R13.10 - DYSPHAGIA, UNSPECIFIED Status: Acute (2) Pneumonia Code(s): J18.9 - PNEUMONIA, UNSPECIFIED ORGANISM Status: Acute Qualifiers: Laterality: right (3) Diabetes, type 1.5, uncontrolled, managed as type 2 Code(s): E13.65 - OTHER SPECIFIED DIABETES MELLITUS WITH HYPERGLYCEMIA Status : Chronic (4) Hypertension Code(s): I10 - ESSENTIAL (PRIMARY) HYPERTENSION Status: Chronic - Plan Plan: Mrs. Ambrocio is a pleasant 63 y/o CF with PMH of DM2 recently discharged from the hospital on 01/25/19 for CAP who presents with dysphagia 1. Dysphagia - likely 2/2 cough/congestion/pharangeal irritation. Now completely resolved. - Swallow Study in ED was negative. Passed speech bedside swallow and tolerating regular diet. - Will need f/u with PCP as outpatient if sxs return 2. CAP - Patient had one dose of amox has outpatient - Procalcitonin: 0.05, LA 1.2, Respiratory Panel: Parainfluenza - CXR RUL PNA - CTA chest - No PE, RUL and RLL PNA, hiatal hernia, fatty liver - Ceftriaxone 1 g IV and Azithromycin 500 mg IV Day 2 --> will transition to PO as approaching discharge and tolerating PO well. 3. DM2, Poorly Controlled - Restart home regime of Humalog 70/30 (45U AC - 40U AC - 45U AC) - Mild Sliding Scale Insulin, POC Gluc 247 -> 304 -> 104. Likely elevated 2/2 steriods + acute illness. Will continue home regime and close monitoring as outpatient. VTE: Lovenox Diet: Mechanical soft Code: Cardiac only Dispo: Cont abx for CAP and transition to PO, dysphagia resolved. Plan for discharge this PM.
[2019-01-28] MEDS: Metoclopramide HCl 10 MG/2 ML VIAL IVP SCH ×2 (06:24→13:10)
[2019-01-28] MEDS: Sodium Chloride 0.9% 1,000 ML IV SCH ×2 (06:44→13:09)
[2019-01-28] MEDS ORDERED: HumuLIN 70/30 (300 UNITS/3 ML VIAL) SC SCH (07:30)
[2019-01-28] MEDS ORDERED: predniSONE 20 MG TAB PO SCH (08:00)
[2019-01-28] MEDS: Gabapentin 300 MG CAP PO SCH ×2 (08:02→13:10)
[2019-01-28] MEDS: metFORMIN 500 MG TAB PO SCH (08:02)
[2019-01-28] MEDS: Aspirin 325 mg Enteric Coated Tablet PO SCH (08:02)
[2019-01-28] MEDS: Lisinopril 20 MG TAB PO SCH (08:02)
[2019-01-28] MEDS: Enoxaparin Sodium 40 MG/0.4 ML SYRINGE SC SCH (08:07)
[2019-01-28] MEDS: HumuLIN 70/30 (300 UNITS/3 ML VIAL) SC SCH (11:21)
[2019-01-28 12:02] VITALS: BP 161/69; TEMP 97.8
--- NOTE | 2019-01-28 12:05 | PRG ---
DATE OF SERVICE: 01/28/2019 Ms. Ambrocio's dysphagia has completely abated. This seems to be more of choking on mucus due to her pneumonia than true dysphagia. In the event, she is tolerating medications and diet without any difficulty and will be discharged to resume her oral amoxicillin. Job ID: [id number]
--- NOTE | 2019-01-28 20:03 | DIS ---
DATE OF ADMISSION: 01/27/2019 DATE OF DISCHARGE: 01/28/2019 RESIDENT: Dr. Leobardo John. ADMITTING ATTENDING: Dr. Vanesa Drew. DISCHARGE ATTENDING: Dr. Nascimento. CONSULTS: Speech evaluation. PROCEDURES: 1. Chest x-ray - persistent right upper lobe pneumonia. 2. CTA of chest - demonstrated no central or segmental pulmonary embolus. Right upper lobe and right lower lobe pneumonia. Small bilateral pleural effusions. Reactive lymph node within the right hilar region. Fatty liver. Hiatal hernia. PRIMARY DIAGNOSES: 1. Community-acquired pneumonia. 2. Dysphagia. SECONDARY DIAGNOSES: 1. Poorly controlled type 2 diabetes. 2. Neuropathy. 3. Hypertension. DISCHARGE MEDICATIONS: 1. Humulin 70/30, 45 units at 0730, 45 units at 1700, 40 units at 1130. 2. Azithromycin 250 mg tablet p.o. daily x4 days. 3. Amoxicillin 500 mg p.o. t.i.d. for 6 days. 4. Protonix 40 mg p.o. daily p.r.n. 5. Cholecalciferol 1000 units p.o. daily. 6. Flexeril 10 mg p.o. at bedtime. 7. Amitriptyline 50 mg p.o. at bedtime. 8. Gabapentin 300 mg p.o. q.i.d. 9. Metformin 1000 mg p.o. b.i.d. 10. Lisinopril 40 mg p.o. q.a.m. 11. Simvastatin 40 mg p.o. at bedtime. 12. Aspirin 325 mg p.o. daily. DISCONTINUED MEDICATIONS: None. HISTORY OF PRESENT ILLNESS AND HOSPITAL COURSE: Ms. Ambrocio is a pleasant 63-year-old female with history of type 2 diabetes, hypertension, neuropathy, who presented to the ER with inability to tolerate p.o. antibiotics or diet. She was recently discharged from the hospital on 01/25/2019 for community-acquired pneumonia, on amoxicillin and azithromycin. She states that for the last approximately day and a half, she has been unable to tolerate any p.o., as well as having a fever measuring 102, continued fatigue, shortness of breath , and rigors. She stated that she essentially put a pill into her mouth, she started to gag immediately with regurgitation. She does not believe the pill was getting stuck in her throat, but states that she has had a significant sore throat due to cough and congestion, and this is likely contributed to her inability to swallow soft diet or medications. In the ED, she passed a swallow study. However, her O2 saturations did drop into the 80s with ambulation. She received chest x-ray that essentially unchanged from prior admission. She received 1 L of normal saline bolus, albuterol, DuoNeb, and was given azithromycin 500 mg IV as well as ceftriaxone 1 g IV with steroids. She was also given Reglan, Zofran, and Haldol for refractory nausea. She was admitted for further evaluation and management. She did well throughout the day and later the evening, Speech Therapy was consulted to evaluate the patient. She again passed a bedside swallow study and was able to advance her diet to mechanical soft. She tolerated this very well and was able to eat her entire dinner as well as take her p.o. medications that night. Her O2 saturations did improve with albuterol treatments, and she did not require any supplemental oxygen. Later that evening , she is able to ambulate throughout the moore without getting short of breath or having desaturations. A respiratory virus panel was ordered that showed parainfluenza virus. On admission, her blood sugar was elevated at 191. She is continued on her home insulin regimen as well as placed on sliding scale. The patient did very well overnight and was able to tolerate p.o. without any difficulty. She states that her dysphagia has completely resolved and attributes to increased cough, congestion, and sore throat that prevents her from being able to swallow. She is able to tolerate breakfast on the morning of discharge and her medications without any difficulty. She was again ambulating well without any difficulty or desaturations. She states that her shortness of breath has markedly improved, and she was afebrile overnight and report any subjective fevers or chills. Her blood sugars have remained elevated into the 300s, and she was given appropriate sliding scale insulin. Insulin regimen was discussed with the patient and these elevations in blood sugar could be a combination of her acute illness nebulizer treatments and recent steroids. She was told to keep a log of her blood sugars upon discharge and to follow up with her primary care physician for further management. Since the patient to be discharged home to complete an antibiotic course for community-acquired pneumonia, considering that her dysphagia completely resolved. The patient will be discharged home on a regimen of azithromycin and amoxicillin. Alarm symptoms that would warrant return to either primary care doctor or ER were discussed with the patient. The patient voiced agreement and understanding of discharge plan and was eager to go home and follow up with the primary care physician within 1 week. DISPOSITION: Stable. DISCHARGE INSTRUCTIONS: 1. Location: Home. 2. Diet: Diabetic, mechanical soft to advance as tolerated. 3. Activity: Regular. 4. Followup: The patient should follow up with primary care physician within 1 week of discharge. Job ID: [id number] MTDD
[2019-01-28] MEDS ORDERED: Cyclobenzaprine 10 MG TAB PO SCH (21:00)
[2019-01-29] MEDS ORDERED: AMOXicillin 250 MG CAP PO SCH (08:00)
[2019-01-29] MEDS ORDERED: Azithromycin 250 MG TAB PO SCH (09:00)
== END 2019-01-28 14:32 | disposition home or self-care (01) ==
LOC: ERS 23:41 → 2SW 01-27 05:04
PROVIDERS: ADMIT Family Medicine; ATTEND Family Medicine
DX: R13.10 Dysphagia, unspecified (principal); R11.2 Nausea with vomiting, unspecified; R50.9 Fever, unspecified; I10 Essential (primary) hypertension; E11.40 Type 2 diabetes mellitus with diabetic neuropathy, unspecified; J18.9 Pneumonia, unspecified organism; Z88.2 Allergy status to sulfonamides; Z79.4 Long term (current) use of insulin; Z79.82 Long term (current) use of aspirin; Z79.899 Other long term (current) drug therapy
CPT/HCPCS: 71046; 71275; 80053; 81003; 82550; 82962 ×2; 83605; 83690; 83735; 83880; 84145; 84484; 85025; 87633; 93005; 94640 ×3; 96361 ×3; 96365; 96366; 96367; 96372; 96375 ×3; 96376 ×2; 99285; G0378 ×3; 20610; 36415; 36416; J0456; J0696; J1100; J1630; J1650; J1815; J2765; J3490; J7050; J7620; J7626; Q9967

== ENCOUNTER 2019-05-12 15:02 | Emergency (ER) | payer MEDICARE ==
[2019-05-12] MEDS ORDERED: hydrOXYzine 25 MG TAB ONE (15:28)
[2019-05-12] MEDS ORDERED: Famotidine 20 MG TAB ONE (15:28)
[2019-05-12] MEDS ORDERED: Dexamethasone 10 MG/ML VIAL ONE (15:28)
== END 2019-05-12 16:21 | disposition home or self-care (01) ==
LOC: ERS 15:02
DX: L50.9 Urticaria, unspecified (principal); I10 Essential (primary) hypertension; E11.40 Type 2 diabetes mellitus with diabetic neuropathy, unspecified; Z79.84 Long term (current) use of oral hypoglycemic drugs; Z79.899 Other long term (current) drug therapy
CPT/HCPCS: 99282; J1100

== ENCOUNTER 2020-04-23 09:49 | Day surgery (SDC) | payer MEDICARE, OTHER ==
[2020-04-20 11:30] LABS: Hemoglobin 13.1 g/dL (12.0-16.0); Mean Corpuscular Hemoglobin 31.7 pg (27.0-31.0); Mean Corpuscular Volume 90.5 fL (78.0-98.0); Mean Platelet Volume 8.6 fL (7.4-10.4); Platelet Count 277 thou/uL (130-400); RBC Distribution Width 11.9 % (11.5-14.5); Red Blood Cell (RBC) Count 4.13 mill/uL (4.20-5.40); White Blood Cell (WBC) Count 5.6 thou/uL (4.8-10.8)
[2020-04-20 11:35] LABS: Anion Gap 15 mmol/L (10-20); BUN (Urea Nitrogen) 18 mg/dL (9.8-20.1); Calc. Creatinine Clearance 0 mL/min (70-130); Calcium 9.8 mg/dL (7.8-10.44); Carbon Dioxide 28 mmol/L (23-31); Chloride 101 mmol/L (98-107); Estimated GFR-MDRD 74; Glucose 171 mg/dL (80-115); Potassium 4.9 mmol/L (3.5-5.1); Sodium 139 mmol/L (136-145)
[2020-04-20 16:36] LABS: SARS-CoV-2 MS2 Positive; SARS-CoV-2 N Gene Negative; SARS-CoV-2 S Gene Negative; SARS-CoV-2 by NAA Not Detected (NotDetected); SARS-CoV-2 orf1ab Negative
[2020-04-22 12:58] VITALS: BMI 30.2
--- NOTE | 2020-04-23 05:38 | HP ---
HISTORY OF PRESENT ILLNESS: Ms. Ambrocio is a 64-year-old white female, who was referred by Dr. Gauri Ariza, for findings of a 9 cm cystic pelvic mass causing intrinsic mass effect on the bladder. She is reporting approximately a 4 to 5-month history of increasing pelvic pressure symptomatology with some urgency and frequency. This is why she presented to the Urology Service initially. She had a CAT scan on 01/20/2020 and again in March 2020 showing a stable 9 cm simple cyst, most likely from the right ovary. She had no ascites or any solid component seen in the cyst and no lymphadenopathy. I evaluated the patient in my office on 03/17/2020. Again, a pelvic ultrasound did confirm a simple approximately 9 cm pelvic cyst. She did have normal OVA1 tumor markers with low risk probability for malignancy of 4.8 and 4.6. She does report a history of ovarian cancer in her family and she was BRCA screened and she is negative for BRCA1 and BRCA2 mutations. She has a significant medical history for diabetes with diabetic retinopathy, for which she is receiving retinal steroid injections and under the care of Dr. Armijo. She also has some psoriasis in her feet, which she is managed by Dermatology and hyperlipidemia and hypertension. FAMILY HISTORY: Noted for the breast and ovarian cancers in her paternal grandmother and mother. SOCIAL HISTORY: Nonsmoker. No excessive alcohol use. PREVIOUS SURGERIES: She has had a cystoscopy of the bladder, bilateral tubal ligation, and laparoscopic cartilage therapy of her knee. CURRENT MEDICATIONS: As follows; 1. Metformin 850 mg tablet 1 three times a day. 2. Gabapentin 300 mg tablet 1 q.i.d. 3. Lisinopril 40 mg tablet daily. 4. Amitriptyline 50 mg at bedtime. 5. Cyclobenzaprine 10 mg tablet one at bedtime. 6. Simvastatin 20 mg tablet daily. 7. Pantoprazole 40 mg tablet daily. 8. Ecotrin or aspirin 325 mg tablet daily. 9. Vitamin D 1000 international units daily. 10. Insulin, she is on Humalog, which should be 40 units with 6 clicks three times a day. 11. Lantus 15 units q.a.m. 12. She is on methotrexate 2.5 mg 5 tablets once a week for her psoriasis. 13. Folic acid tablet 1 mg every day except on Fridays. ALLERGIES: HER ALLERGIES ARE SULFA, WHICH CAUSES SWELLING. PHYSICAL EXAMINATION: VITAL SIGNS: Her height is 5 feet 4 inches, weight 176 pounds, and BMI 30.2. Blood pressure 124/60, pulse 88, respiratory rate 18, and O2 saturation on room air 96%. HEENT: Within normal limits. CHEST: Clear to auscultation. HEART: Regular rate and rhythm. S1 and S2 heart sounds. No murmurs, rubs, or gallops. ABDOMEN: Soft, nontender, and nondistended. She does have some mild tenderness though in the suprapubic lower pelvis with no rebound. PELVIC: Vulva and vagina had no lesions. Cervix had no lesions. There was a palpable mass suprapubically in the midline approximately 9 to 10 cm. ASSESSMENT: This is a 64-year-old white female with family history of breast and ovarian cancer. Her OVA1 screening for this particular simple cyst was low risk and she is negative for BRCA1 and BRCA2 mutations. PLAN: Plan is to proceed with a robotic laparoscopic assisted bilateral salpingo-oophorectomy with bag retrieval of the cyst. Risks and benefits of the procedure have been discussed in detail. She is set for surgery on 04/23/2020. Job ID: [id number]
[2020-04-23] MEDS ORDERED: Bupivacaine HCl 0.5%/Epinephrine 1:200,000/PF 30 ml Vial ONE (10:21)
[2020-04-23] MEDS ORDERED: Famotidine/PF 20 mg/2ml Vial ONE ×2 (11:07→11:11)
[2020-04-23] MEDS ORDERED: Gabapentin 300 MG CAP ONE (11:07)
[2020-04-23] MEDS ORDERED: Fentanyl 100 MCG/2 ML VIAL ONE ×3 (11:20→14:43)
[2020-04-23] MEDS ORDERED: HYDROmorphone 0.5 MG/0.5 ML SYRINGE ONE (11:20)
[2020-04-23] MEDS ORDERED: HYDROcodone/Acetaminophen 5/325 mg Tablet ONE (16:24)
[2020-04-23] MEDS ORDERED: Promethazine HCl 25 MG/ML VIAL ONE (17:03)
[2020-04-23] MEDS ORDERED: Ondansetron ODT 4 MG TAB ONE (18:39)
--- NOTE | 2020-04-23 18:59 | OP ---
DATE OF PROCEDURE: 04/23/2020 PREOPERATIVE DIAGNOSES: 1. A 64-year-old white female with 9 cm left ovarian cyst. 2. Family history of ovarian cancer. 3. The patient is BRCA1 and 2 negative. POSTOPERATIVE DIAGNOSES: 1. A 64-year-old white female with 9 cm left ovarian cyst. 2. Family history of ovarian cancer. 3. The patient is BRCA1 and 2 negative. PROCEDURE PERFORMED: Robotic bilateral salpingo-oophorectomy with bag retrieval of the specimen. NEEDLE BAR MOLDER SURGEON: ROSA Morton. ANESTHESIA: General endotracheal. ESTIMATED BLOOD LOSS: 10 mL. COMPLICATIONS: None. COUNTS: Correct x2. FINDINGS: 1. Normal right fallopian tube , uterus, and ovary. 2. Globularly enlarged, smooth left ovarian cyst, approximately 9 cm. 3. No abnormal implants seen throughout the pelvis and abdomen. PATHOLOGY: Bilateral tubes, ovaries, and ovarian cyst. DISPOSITION: Recovery room and then plan for discharge home from Day Stay. DESCRIPTION OF PROCEDURE: The patient previously received informed consent in regard to surgery. She was taken back to the operating room, where she received a general endotracheal anesthetic agent without complications. She was placed in the dorsal lithotomy position with the use of Eladio stirrups and then prepped and draped in usual sterile fashion. Wilson catheter was placed and a side-arm speculum was placed in the vagina. Anterior lip of cervix was grasped with single-tooth tenaculum. A [employer] uterine manipulator was placed. Attention was then turned to the abdomen, where perspective trocar sites were infiltrated with 0.5% Marcaine with epinephrine. A 12 mm supraumbilical incision was made. Veress needle was entered to the abdomen and the patient's pressure was noted to be less than 5 mmHg. The abdomen was insufflated for the patient pressure of 15 with approximately 5 L of carbon dioxide gas. Veress needle was then removed. A 12 mm trocar was then placed through the incision site and the laparoscope was introduced through the trocar sleeve, confirming proper entry. Additional bilateral lower quadrant 8 mm trocars were then placed under laparoscopic guidance along with the right upper quadrant 11 mm senior underwriting assistant port. The pelvis was inspected with the previously mentioned findings. The robot was then docked in usual fashion. I broke scrub and then proceeded to carry out the operation from the operative console while my assistants remained at the bedside. The uterus was elevated by my senior underwriting assistant with the uterine manipulator and the left large ovarian cyst was mobilized to the midline. This allowed me to visualize the left infundibulopelvic ligament. I used a bipolar fenestrated cautery to cauterize the left IP ligament and transected with monopolar scissors. We also did coagulation of the mesosalpinx, removing also the remnant of the fallopian tube. We swung around the mesosalpinx, cauterizing and excising and then cauterized the left uterine ovarian ligament and transected this, removing the specimen. Hemostasis was confirmed. The tube and ovary, ovarian cyst were then placed in the posterior cul-de-sac. Then my senior underwriting assistant grasped the right fallopian tube, I coagulated the right IP ligament, transected this and then coagulated in the mesosalpinx and removed into the right utero-ovarian ligament, which was coagulated and transected this, then removed the right ovarian, fallopian tube and ovary complex. A size 10 mm bag was then brought in, endobag was brought through up to the right upper quadrant. This allowed for us to place the right ovary and tube in the bottom of the bag, the bag was opened by my senior underwriting assistant. I switched out to a Juanjo needle sweeper driver on the right side, replacing the monopolar scissors. We were then able to wedge the ovarian cyst and the tube structure into the bag and cinched this down. We brought this up to the right upper quadrant. Then, I was able to undock the robot, and then removed the 12 mm trocar in the umbilicus. I put two [employer] retractors into the fascia and extended the incision to approximately 2.5 cm. This allowed for me to place my finger under the fascia into the peritoneal cavity, and grasped the suture of the bag and pulled the endobag suture through the umbilical incision defect. We then incised the ovarian cyst, which remained covered and intact, and then drained the cyst with Yankauer suction. This allowed for us then to remove the ovary and cyst intact in the bag. That was sent for final pathology. The fascial defect in the umbilicus was then did a double-layer closure with 0 Vicryl suture in running continuous fashion. The remainder of the trocar sites were closed with 4-0 Monocryl suture and Dermabond. The [employer] uterine manipulator was removed and hemostasis was confirmed. The patient was awakened from anesthesia and transferred to recovery room in stable, planned for discharge home. Job ID: [id number]
== END 2020-04-23 20:08 | disposition home or self-care (01) ==
LOC: SDC 09:49
PROVIDERS: ATTEND Obstetrics & Gynecology
PROC: 0UT24ZZ Resection of Bilateral Ovaries, Percutaneous Endoscopic Approach (ICD-10-PCS; principal; 2020-04-23)
PROC: 0UT74ZZ Resection of Bilateral Fallopian Tubes, Percutaneous Endoscopic Approach (ICD-10-PCS; 2020-04-23)
DX: N83.292 Other ovarian cyst, left side (principal); N83.00 Follicular cyst of ovary, unspecified side; N83.8 Other noninflammatory disorders of ovary, fallopian tube and broad ligament; E11.319 Type 2 diabetes mellitus with unspecified diabetic retinopathy without macular edema; L40.9 Psoriasis, unspecified; Z79.4 Long term (current) use of insulin; Z79.82 Long term (current) use of aspirin; Z79.899 Other long term (current) drug therapy; Z88.2 Allergy status to sulfonamides; Z01.812 Encounter for preprocedural laboratory examination; Z20.828 Contact with and (suspected) exposure to other viral communicable diseases
CPT/HCPCS: 36600; 58661; 80048; 85027; 86850; 86900; 86901; U0003; 87635; 88305; J0690; J1170; J2550; J3010; Q0162; S0028

== ENCOUNTER 2021-01-07 13:44 | Outpatient (CLI) | payer MEDICARE | END 2021-01-07 13:45 | disposition home or self-care (01) | LOC: BICULT 13:44 | PROVIDERS: ATTEND Family Medicine | DX: E11.3393 Type 2 diabetes mellitus with moderate nonproliferative diabetic retinopathy without macular edema, bilateral (principal); E11.40 Type 2 diabetes mellitus with diabetic neuropathy, unspecified; I10 Essential (primary) hypertension; R09.89 Other specified symptoms and signs involving the circulatory and respiratory systems | CPT/HCPCS: 93923 ==

== ENCOUNTER 2021-03-10 09:57 | Outpatient (CLI) | payer MEDICARE | END 2021-03-10 09:58 | disposition home or self-care (01) | LOC: BICMAMMO 09:57 | PROVIDERS: ATTEND Family Medicine | DX: Z13.820 Encounter for screening for osteoporosis (principal) | CPT/HCPCS: 77080 ==

== ENCOUNTER 2021-06-01 15:22 | Outpatient (CLI) | payer MEDICARE | END 2021-06-01 15:23 | disposition home or self-care (01) | LOC: BICULT 15:22 | PROVIDERS: ATTEND Urology | DX: N28.1 Cyst of kidney, acquired (principal); N39.41 Urge incontinence | CPT/HCPCS: 76770 ==

== ENCOUNTER 2021-08-09 14:58 | Emergency (ER) | payer MEDICARE ==
[2021-08-09 16:21] LABS: #Basophils 0.1 thou/uL (0.0-0.2); #Eosinphils 0.1 thou/uL (0.0-0.7); #Lymphocytes 2.3 thou/uL (1.20-3.40); #Monocytes 0.7 thou/uL (0.11-0.59); #Neutrophils 4.2 thou/uL (1.40-6.50); %Basophils 0.7 % (0.0-1.0); %Eosinophils 1.7 % (0.0-10.0); %Lymphocytes 31.4 % (21.0-51.0); %Monocytes 9.2 % (0.0-10.0); Hemoglobin 13.9 g/dL (12.0-16.0); Mean Corpuscular HGB CONC 34.7 g/dL (32.0-36.0); Mean Corpuscular Hemoglobin 30.5 pg (27.0-31.0); Mean Platelet Volume 7.6 fL (7.4-10.4); Platelet Count 339 thou/uL (130-400); RBC Distribution Width 11.4 % (11.5-14.5); Red Blood Cell (RBC) Count 4.54 mill/uL (4.20-5.40); White Blood Cell (WBC) Count 7.4 thou/uL (4.8-10.8)
[2021-08-09 17:18] LABS: ALT (SGPT) 14 U/L (8-55); AST (SGOT) 15 U/L (5-34); Albumin 4.6 g/dL (3.4-4.8); Alkaline Phosphatase 84 U/L (40-110); Anion Gap 16 mmol/L (10-20); BUN (Urea Nitrogen) 17 mg/dL (9.8-20.1); Bilirubin, Total 0.4 mg/dL (0.2-1.2); Calc. Creatinine Clearance 0 mL/min (70-130); Calcium 9.9 mg/dL (7.8-10.44); Carbon Dioxide 25 mmol/L (23-31); Chloride 101 mmol/L (98-107); Globulin 3.5 g/dL (2.4-3.5); Glucose 156 mg/dL (80-115); Potassium 3.9 mmol/L (3.5-5.1); Protein, Total 8.1 g/dL (5.8-8.1); Sodium 138 mmol/L (136-145)
[2021-08-09 19:02] LABS: Bacteria/HPF None Seen HPF (None Seen); Bilirubin Negative (Negative); Blood, Urine Negative (Negative); Clarity Clear (Clear); Glucose, Urine (Dipstick) Normal (Negative); Ketone, Urine Trace mg/dL (Negative); Leukocyte Negative Leu/uL (Negative); Nitrite Negative (Negative); Protein, Urine (Dipstick) 30 mg/dL (Neg-Trace); RBC/HPF 0-3 HPF (0-3); Specific Gravity, Urine 1.034 (1.002-1.036); Squamous Epithelial 0-3 HPF (0-3); Urobilinogen Normal mg/dL (Less than 2); WBC/HPF 0-3 HPF (0-3); pH, Urine 5.5 (5.0-9.0)
[2021-08-09 20:24] LABS: Amphetamine Not Detected (NotDetected); Barbiturates Screen Not Detected (NotDetected); Benzodiazepine Screen Not Detected (NotDetected); Cocaine Metabolite Screen Not Detected (NotDetected); Methadone Not Detected (NotDetected); Methamphetamine Not Detected (NotDetected); Opiate Screen Not Detected (NotDetected); Oxycodone Screen Not Detected (NotDetected); Phencyclidine (PCP) Not Detected (NotDetected); THC/Cannabinoid Screen Not Detected (NotDetected); Tricyclic Screen Detected (NotDetected)
[2021-08-09 20:25] LABS: Acetaminophen Less than 6.0 mcg/mL (10.0-30.0); Alcohol Less than 10 mg/dL (Less than 10); Salicylate Less than 8.0 mg/dL (15.0-30.0)
== END 2021-08-09 22:08 | disposition home or self-care (01) ==
LOC: ERS 14:58
DX: F32.9 Major depressive disorder, single episode, unspecified (principal); I10 Essential (primary) hypertension; E11.9 Type 2 diabetes mellitus without complications; Z79.84 Long term (current) use of oral hypoglycemic drugs; Z79.899 Other long term (current) drug therapy; Z79.4 Long term (current) use of insulin
CPT/HCPCS: 36415; 71045; 80053; 80306; 80307; 81003; 81015; 84443; 84484; 85025; 93005

== ENCOUNTER 2021-11-24 11:33 | Observation (INO) | payer MEDICARE ==
[2021-11-24 12:09] LABS: #Basophils 0.1 thou/uL (0.0-0.2); #Eosinphils 0.6 thou/uL (0.0-0.7); #Lymphocytes 1.9 thou/uL (1.20-3.40); #Monocytes 0.6 thou/uL (0.11-0.59); #Neutrophils 4.3 thou/uL (1.40-6.50); %Basophils 1.7 % (0.0-1.0); %Eosinophils 8.2 % (0.0-10.0); %Lymphocytes 24.9 % (21.0-51.0); %Monocytes 7.7 % (0.0-10.0); %Neutrophils 57.5 % (42.0-75.0); Hemoglobin 11.9 g/dL (12.0-16.0); Mean Corpuscular HGB CONC 33.3 g/dL (32.0-36.0); Mean Corpuscular Hemoglobin 30.5 pg (27.0-31.0); Mean Corpuscular Volume 91.6 fL (78.0-98.0); Mean Platelet Volume 7.6 fL (7.4-10.4); Platelet Count 376 thou/uL (130-400); RBC Distribution Width 11.7 % (11.5-14.5); White Blood Cell (WBC) Count 7.5 thou/uL (4.8-10.8)
[2021-11-24 12:27] LABS: ALT (SGPT) 7 U/L (8-55); AST (SGOT) 12 U/L (5-34); Albumin 4.1 g/dL (3.4-4.8); Alkaline Phosphatase 100 U/L (40-110); Anion Gap 16 mmol/L (10-20); BUN (Urea Nitrogen) 24 mg/dL (9.8-20.1); Bilirubin, Total 0.4 mg/dL (0.2-1.2); CK (CPK) 12 U/L (29-168); Calc. Creatinine Clearance 0 mL/min (70-130); Carbon Dioxide 28 mmol/L (23-31); Chloride 98 mmol/L (98-107); Globulin 3.5 g/dL (2.4-3.5); Glucose 123 mg/dL (80-115); Lipase 13 U/L (8-78); Magnesium 1.4 mg/dL (1.6-2.6); Potassium 4.9 mmol/L (3.5-5.1); Protein, Total 7.6 g/dL (5.8-8.1); Sodium 137 mmol/L (136-145)
[2021-11-24] MEDS ORDERED: Iopamidol-370 76% 500 ML 1 ML ONE (15:23)
[2021-11-24] MEDS ORDERED: Magnesium 2 GM/50 ML(in water) 2 GM in Premix Bag 1 BAG IVPB SCH (15:30)
[2021-11-24] MEDS ORDERED: Acetaminophen 325 MG TAB PO PRN (16:11)
[2021-11-24] MEDS ORDERED: Ondansetron PF 4 MG/2 ML Vial ONE (16:34)
[2021-11-24] MEDS ORDERED: Dextrose 5% in Water 1,000 ML IV PRN (16:37)
[2021-11-24] MEDS ORDERED: HumaLOG 300 UNITS/3 ML VIAL SC PRN ×2 (16:37)
[2021-11-24] MEDS ORDERED: Dextrose 50% Abboject 50 ML SYRINGE SLOW IVP PRN (16:37)
[2021-11-24] MEDS ORDERED: HYDROcodone/Acetaminophen 10/325 mg Tablet PO PRN (17:21)
[2021-11-24 17:22] LABS: Troponin I Less than 0.010 ng/mL (< 0.028)
[2021-11-24 18:02] VITALS: BMI 25.4
[2021-11-24] MEDS: Gabapentin 300 MG CAP PO SCH ×2 (18:28→20:40)
[2021-11-24] MEDS: metFORMIN 850 MG TAB PO SCH (18:28)
[2021-11-24] MEDS ORDERED: Ondansetron PF 4 MG/2 ML Vial IVP PRN (20:36)
[2021-11-24] MEDS ORDERED: Calcium Carbonate 500 MG ChewTAB PO PRN (20:37)
[2021-11-24] MEDS: Aspirin 325 mg Enteric Coated Tablet PO SCH (20:40)
[2021-11-24] MEDS: Insulin Glargine 30 UNITS/0.3 ML VIAL SC SCH (20:41)
[2021-11-24] MEDS ORDERED: Lidocaine 2% Viscous Solution 10 ML, Aluminum & Magnesium Hydroxide 30 ML SSW SCH (20:45)
[2021-11-24] MEDS ORDERED: Cyclobenzaprine 10 MG TAB PO SCH (21:00)
[2021-11-24] MEDS ORDERED: Amitriptyline HCl 25 MG TAB PO SCH (21:00)
[2021-11-24] MEDS ORDERED: Simvastatin 5 MG TAB PO SCH (21:00)
[2021-11-24 21:25] LABS: Troponin I Less than 0.010 ng/mL (< 0.028)
[2021-11-25 00:15] LABS: SARS-CoV-2 PCR by NAA Not Detected (NotDetected)
[2021-11-25 05:25] LABS: #Basophils 0.1 thou/uL (0.0-0.2); #Eosinphils 0.7 thou/uL (0.0-0.7); #Lymphocytes 2.1 thou/uL (1.20-3.40); #Monocytes 0.5 thou/uL (0.11-0.59); #Neutrophils 3.2 thou/uL (1.40-6.50); %Basophils 1.2 % (0.0-1.0); %Eosinophils 10.5 % (0.0-10.0); %Lymphocytes 32.1 % (21.0-51.0); %Monocytes 7.7 % (0.0-10.0); %Neutrophils 48.4 % (42.0-75.0); Mean Corpuscular HGB CONC 32.8 g/dL (32.0-36.0); Mean Corpuscular Volume 91.6 fL (78.0-98.0); Mean Platelet Volume 7.5 fL (7.4-10.4); Platelet Count 388 thou/uL (130-400); RBC Distribution Width 11.6 % (11.5-14.5); Red Blood Cell (RBC) Count 3.66 mill/uL (4.20-5.40); White Blood Cell (WBC) Count 6.6 thou/uL (4.8-10.8)
[2021-11-25 05:40] LABS: Anion Gap 12 mmol/L (10-20); BUN (Urea Nitrogen) 26 mg/dL (9.8-20.1); Calc. Creatinine Clearance 70 mL/min (70-130); Carbon Dioxide 30 mmol/L (23-31); Chloride 99 mmol/L (98-107); Potassium 5.1 mmol/L (3.5-5.1); Sodium 136 mmol/L (136-145)
[2021-11-25 05:41] LABS: ALT (SGPT) Less than 7 U/L (8-55); AST (SGOT) 12 U/L (5-34); Albumin 3.7 g/dL (3.4-4.8); Alkaline Phosphatase 87 U/L (40-110); Bilirubin, Total 0.4 mg/dL (0.2-1.2); Calcium 9.3 mg/dL (7.8-10.44); Globulin 3.1 g/dL (2.4-3.5); Glucose 99 mg/dL (80-115); Magnesium 2.1 mg/dL (1.6-2.6); Protein, Total 6.8 g/dL (5.8-8.1)
[2021-11-25] MEDS ORDERED: Lisinopril 20 MG TAB PO SCH (09:00)
[2021-11-25] MEDS ORDERED: Cholecalciferol 1,000 UNITS (25 MCG) TAB PO SCH (09:00)
[2021-11-25] MEDS ORDERED: Enoxaparin Sodium 40 MG/0.4 ML SYRINGE SC SCH (09:00)
[2021-11-25] MEDS ORDERED: Folic Acid 1 MG TAB PO SCH (09:00)
[2021-11-25] MEDS: Gabapentin 300 MG CAP PO SCH ×3 (09:01→16:17)
[2021-11-25] MEDS: metFORMIN 850 MG TAB PO SCH ×4 (09:01→16:24)
[2021-11-25] MEDS: Aspirin 325 mg Enteric Coated Tablet PO SCH (09:01)
[2021-11-25] MEDS: Insulin Glargine 30 UNITS/0.3 ML VIAL SC SCH (09:03)
[2021-11-25] MEDS ORDERED: Lactated Ringer's 500 ML IV SCH (09:30)
[2021-11-25] MEDS ORDERED: Lactated Ringer's 1,000 ML IV SCH (09:30)
[2021-11-25 15:28] VITALS: BP 111/55; TEMP 98.4
== END 2021-11-25 18:08 | disposition home or self-care (01) ==
LOC: ERS 11:33 → 2SW 16:11
PROVIDERS: ADMIT Student in an Organized Health Care Education/Training Program; ATTEND Student in an Organized Health Care Education/Training Program
DX: R00.2 Palpitations (principal); I10 Essential (primary) hypertension; E11.9 Type 2 diabetes mellitus without complications; F41.9 Anxiety disorder, unspecified; G47.00 Insomnia, unspecified; K21.9 Gastro-esophageal reflux disease without esophagitis; I08.3 Combined rheumatic disorders of mitral, aortic and tricuspid valves; Z79.82 Long term (current) use of aspirin; Z79.84 Long term (current) use of oral hypoglycemic drugs; Z79.899 Other long term (current) drug therapy; Z88.2 Allergy status to sulfonamides; Z20.822 Contact with and (suspected) exposure to COVID-19
CPT/HCPCS: 71045; 71275; 80053; 82550; 82962 ×2; 83690; 83735 ×2; 84484 ×2; 85025; 85379; 93005; 93306; 94760; 96372; 96376; 97139 ×2; 97530; G0378 ×3; U0003; U0005; 36415; 36416; 84443; J1650; J1815; J2405; J3475; J7120; Q9967

== ENCOUNTER 2023-03-16 06:01 | Day surgery (SDC) | payer MEDICARE ==
[2023-03-15 11:35] VITALS: BMI 27.4
[~2023-03-16 06:01] MED LIST changes: +EPINEPHrine 0.3 MG, Dextrose 50% 3 ML in Ophthalmic Irrigation Solution 500 ML IRR SCH; -ISOVUE-370 76%-LOCM 1 ML ONE
[2023-03-16] MEDS ORDERED: Cyclopentolate 0.5% Opth Drops 15 ML BOT ONE (06:22)
[2023-03-16] MEDS ORDERED: PHENYLephrine 2.5% Ophth Soln 15 ml Bottle ONE (06:22)
[2023-03-16] MEDS ORDERED: Midazolam HCl 2 mg/2 ml Vial ONE (06:30)
[2023-03-16] MEDS ORDERED: fentaNYL 50 mcg/mL 1 mL Vial ONE (06:30)
[2023-03-16] MEDS ORDERED: Maxitrol 0.1% Opth Oint 3.5 GM TUBE ONE (07:04)
[2023-03-16] MEDS ORDERED: Lidocaine 1% PF 5 ML VIAL ONE (07:04)
[2023-03-16] MEDS ORDERED: Triamcinolone 40 MG/ML VIAL ONE (07:04)
[2023-03-16] MEDS ORDERED: Lidocaine 4% PF 5 ML AMP ONE (07:04)
[2023-03-16] MEDS ORDERED: Bupivacaine 0.75% 10 ML VIAL ONE (07:04)
[2023-03-16] MEDS ORDERED: PROPOFOL 200 MG/20 ML VIAL ONE (07:04)
[2023-03-16] MEDS ORDERED: CEFAZOLIN 1 GM VIAL ONE (07:04)
== END 2023-03-16 09:10 | disposition home or self-care (01) ==
LOC: SDC 06:01
PROVIDERS: ATTEND Ophthalmology Retina Specialist
PROC: 08T53ZZ Resection of Left Vitreous, Percutaneous Approach (ICD-10-PCS; principal; 2023-03-16)
PROC: 08NF3ZZ Release Left Retina, Percutaneous Approach (ICD-10-PCS; 2023-03-16)
DX: H43.392 Other vitreous opacities, left eye (principal)
CPT/HCPCS: 67041; J3010; J0171; J0690; J2250; J2704; J3301; J3490

== ENCOUNTER 2023-09-26 13:10 | Outpatient (CLI) | payer MEDICARE | END 2023-09-26 13:11 | disposition home or self-care (01) | LOC: BICMAMMO 13:10 | PROVIDERS: ATTEND Family Medicine | DX: Z12.31 Encounter for screening mammogram for malignant neoplasm of breast (principal); Z80.3 Family history of malignant neoplasm of breast | CPT/HCPCS: 77063; 77067 ==

== ENCOUNTER 2024-03-06 10:04 | Outpatient (CLI) | payer MEDICARE | END 2024-03-06 10:05 | disposition home or self-care (01) | LOC: BICMAMMO 10:04 | PROVIDERS: ATTEND Family Medicine | DX: Z13.820 Encounter for screening for osteoporosis (principal) | CPT/HCPCS: 77080 ==

== ENCOUNTER 2025-02-12 13:08 | Outpatient (CLI) | payer MEDICARE, OTHER | END 2025-02-12 13:09 | disposition home or self-care (01) | LOC: BICMAMMO 13:08 | PROVIDERS: ATTEND Family Medicine | DX: Z12.31 Encounter for screening mammogram for malignant neoplasm of breast (principal); Z80.3 Family history of malignant neoplasm of breast | CPT/HCPCS: 77063; 77067 ==